=== PATIENT | male | born 1995 ===

== ENCOUNTER 2016-11-25 23:06 | Emergency (ER) | payer SELFPAY ==
[2016-11-25 23:31] VITALS: BP 133/73; PULSE 107; RESP 16; O2SAT 100
--- NOTE | 2016-11-26 00:27 | ED PDOC ---
HPI: General Adult Time Seen by Provider: 11/25/16 23:44 Chief Complaint (Nursing): ENT Problem Chief Complaint (Provider): fever, throat pain History Per: Patient History/Exam Limitations: no limitations Additional History Per: Patient Additional Complaint(s): 20 y/o male presents with fever x 2 days. Associated sore throat, decreased appetite due to pain with swallowing. Nyquil taken at 19:00. Denies headache, neck pain, vomiting, nasal congestion/discharge, cough, shortness of breath, palpitations, abdominal pain. Past Medical History Reviewed: Historical Data, Nursing Documentation, Vital Signs Vital Signs: Last Vital Signs Temp 99.0 F 11/26/16 03:40 Pulse 107 H 11/25/16 23:28 Resp 16 11/25/16 23:28 BP 133/73 11/25/16 23:28 Pulse Ox 100 11/26/16 00:28 - Medical History PMH: No Chronic Diseases - Surgical History Surgical History: No Surg Hx - Family History Family History: States: No Known Family Hx - Home Medications Home Medications: Ambulatory Orders Medication Instructions Recorded Ibuprofen [Motrin Tab] 1 tab PO Q6 PRN #20 tab 11/26/16 - Allergies Allergies/Adverse Reactions: Allergies Allergy/AdvReac Type Severity Reaction Status Date / Time No Known Allergies Allergy Verified 11/25/16 23:28 Review of Systems ROS Statement: Except As Marked, All Systems Reviewed And Found Negative Constitutional: Positive for: Fever ENT: Positive for: Throat Pain Physical Exam - Reviewed Nursing Documentation Reviewed: Yes Vital Signs Reviewed: Yes - Physical Exam Appears: Positive for: Well, Non-toxic, No Acute Distress Head Exam: Positive for: ATRAUMATIC, NORMAL INSPECTION, NORMOCEPHALIC Skin: Positive for: Normal Color Eye Exam: Positive for: Normal appearance ENT: Positive for: TM Is/Are (clear b/l), Pharyngeal Erythema, Tonsillar Exudate , Tonsillar Swelling, Other (+trismus) Neck: Positive for: Normal, Painless ROM Cardiovascular/Chest: Positive for: Regular Rate, Rhythm Respiratory: Positive for: Normal Breath Sounds Gastrointestinal/Abdominal: Positive for: Normal Exam Extremity: Positive for: Normal ROM Neurologic/Psych: Positive for: Alert, Oriented - Laboratory Results Result Diagrams: 11/26/16 01:06 11/26/16 01:06 - ECG O2 Sat by Pulse Oximetry: 100 - Progress ED Course And Treament: labs, strep, CT ST neck, IV decadron, IV fluids, PO ibuprofen EXAM: CT Neck With Intravenous Contrast EXAM DATE/TIME: 11/26/2016 12:12 AM CLINICAL HISTORY: 20 years old, male; Pain; Neck pain; Additional info: Fever, throat pain TECHNIQUE: Axial computed tomography images of the neck with intravenous contrast. All CT scans at this facility use one or more dose reduction techniques, viz.: automated exposure control; ma/kV adjustment per patient size (including targeted exams where dose is matched to indication; i.e. head); or iterative reconstruction technique. CONTRAST: 95 mL of [id number] administered intravenously. COMPARISON: No relevant prior studies available. FINDINGS: Nasopharynx: Unremarkable. Oropharynx: Prominent oropharyngeal soft tissues most pronounced in the right palatine tonsil region and to a lesser degree the left palatine tonsil and uvula. No abscess. Hypopharynx: Unremarkable. Larynx: Unremarkable. Normal epiglottis. Trachea: Unremarkable. Retropharyngeal space: Unremarkable. Submandibular/parotid glands: Unremarkable. Glands are normal in size. Thyroid: Unremarkable. No enlarged or calcified nodules. Bones/joints: No acute fracture. Soft tissues: See above. Vasculature: No acute findings. Lymph nodes: Unremarkable. No lymphadenopathy. Lung apices: Unremarkable as visualized. IMPRESSION: Prominent oropharyngeal soft tissues most pronounced in the right palatine tonsil region and to a lesser degree the left palatine tonsil and uvula. No abscess. Patient educated on findings, Bicillin IM given. Rx Ibuprofen provided. Advised fluids, rest. Follow up PMD 2-3 days. Return to ED for worsening/concerning symptoms. Disposition - Clinical Impression Clinical Impression: Strep pharyngitis - Patient ED Disposition Is Patient to be Admitted: No Counseled Patient/Family Regarding: Studies Performed, Diagnosis, Need For Followup, Rx Given - Disposition Referrals: [facility] [Outside] Disposition: Routine/Home Disposition Time: 03:45 Condition: IMPROVED Prescriptions: Ibuprofen [Motrin Tab] 1 tab PO Q6 PRN #20 tab PRN Reason: Fever >100.4 F Instructions: Strep Throat (ED) Print Language: ICELANDIC
[2016-11-26] MEDS: Sodium Chloride 0.9% 1,000 ML IV STA (00:57)
[2016-11-26 01:10] LABS: BASO # 0.1 K/uL (0.0-0.2); BASO % 0.4 % (0.0-2.0); HEMATOCRIT 47.6 % (35.0-51.0); LYMPH # 1.5 K/uL (1.0-4.3); LYMPH % 6.4 % (20.0-40.0); MEAN CELL VOLUME 88.8 fl (80.0-94.0); MEAN CORPUSCULAR HEMOGLOBIN 29.5 pg (27.0-31.0); MEAN CORPUSCULAR HGB CONC 33.2 g/dL (33.0-37.0); MEAN PLATELET VOLUME 9.3 fl (7.2-11.7); MONO # 1.7 K/uL (0.0-0.8); MONO % 7.2 % (0.0-10.0); NEUT # 19.7 K/uL (1.8-7.0); NRBC % 0.5 % (0.0-0.0); PLATELET COUNT 165 K/uL (130-400); WHITE BLOOD COUNT 22.9 K/uL (4.8-10.8)
[2016-11-26 01:18] LABS: BLOOD UREA NITROGEN 14 mg/dl (9-20); CALCIUM 9.9 mg/dL (8.4-10.2); CARBON DIOXIDE 28 mmol/L (22-30); CHLORIDE 100 mmol/L (98-107); GFR AFRICAN-AMERICAN > 60; GLUCOSE,RANDOM 108 mg/dL (75-110); POTASSIUM 4.2 MMOL/L (3.6-5.0); SODIUM 138 mmol/l (132-148)
[2016-11-26] MEDS ORDERED: Sodium Chloride 0.9% 50 ML IV ONE (02:12)
[2016-11-26] MEDS ORDERED: Iohexol 300 100 ML IJ ONE (02:12)
[2016-11-26 03:41] VITALS: TEMP 99
[2016-11-26 06:23] LABS: NEUTROPHIL 83 % (42-75); TOTAL CELLS COUNTED 100
[2016-11-26 06:24] LABS: LARGE PLATELETS PRESENT
[2016-11-26] MEDS: Penicillin G Benzathine 1.2 Mill Unit/2 ml Syr IM ONE (06:38)
--- NOTE | 2016-11-26 10:40 | CT ---
PROCEDURE: CT NECK WITH CONTRAST HISTORY: fever, throat pain COMPARISON: None TECHNIQUE: CT of the neck with intravenous contrast. Coronal and sagittal reformats generated. Intravenous contrast dose: 95 cc Omnipaque 300 Radiation dose: DLP 72314 mGy-cm This CT exam was performed using one or more of the following dose reduction techniques: Automated exposure control, adjustment of the mA and/or kV according to patient size, and/or use of iterative reconstruction technique. FINDINGS: NASOPHARYNX: Unremarkable. SUPRAHYOID NECK: Palate seen tonsil hypertrophy identified on the right and to a lesser extent on the left without tonsillar or peritonsillar discrete abscess. Oropharynx heel narrowing is mild in the oropharynx is displaced to the left. INFRAHYOID NECK: No significant findings MASS: None. GLANDS: Parotid and submandibular glands unremarkable. Normal size thyroid gland, without nodule. LYMPH NODES: Normal. No lymphadenopathy. CERVICAL SPINE: No fracture or focal lesion. VASCULAR STRUCTURES: Unremarkable. OTHER FINDINGS: None. IMPRESSION: Tonsillar hypertrophy bilaterally the right greater than left without discrete tonsillar/ peritonsillar abscess. Concordant results (preliminary interpretation) provided by [facility]. Procedure Completed: 02:36. Preliminary ([facility]) Report: Dictated and Authenticated: 03:19. Final Interpretation: 10:38. November 26, 2016.
== END 2016-11-26 02:00 | disposition home or self-care (01) ==
LOC: H.ER 23:06
DX: J02.0 Streptococcal pharyngitis (principal)
CPT/HCPCS: 70491; 80048; 83605; 85025; 87040; 87430; 96372; 99283; J0561; J1100; J2270; J7040; Q9967